=== PATIENT | female | born 1970 ===

== ENCOUNTER 2016-05-21 10:52 | Inpatient (IN) ==
--- NOTE | 2016-05-21 11:39 | Emergency Department Note ---
Yimi Oliveros Brittany, am scribing for, and in the presence of, Tonny Chowdary MD 11:21. Epi Oliveros Doug C, MD, personally performed the services described in this documentation, ascribed by Anushka Geller in my presence, and it is both accurate and complete 139 . Arrival - Arrival Chief Complaint: Upper Respiratory ED Nursing Triage Note: c/o cough and congestion. pt was dx with pneumonia. pt had low bp at [facility]. Mode of Arrival: Stretcher Limitations: No Limitations Source: Patient, Family, RN Notes Reviewed - History of Present Illness HPI Narrative: Patient is a 46-year-old [place] female with cough and chills this started sometime last night. She went to [facility] found to have a sizable right-sided pneumonia and she was hypotensive. Her blood pressure improved with IV fluids but they felt uncomfortable admitting her there with her hypotension and she was transferred here for further evaluation and admission. Patient states she does not have any chest pain she has had a persistent cough the last couple of days. She is not coughing up any sputum. Review of System - Review of System 12 point system: reviewed and no additional remarkable complaints except as stated - Review of System Constitutional: Present: chills, fever Eyes: Absent: vision change Head/Ears/Nose/Throat: Present: nasal drainage, sore throat Respiratory: Present: cough, respiratory distress Cardiovascular: Present: chest pain Gastrointestinal: Absent: abdominal pain, nausea, vomiting Genitourinary female: Absent: dysuria, frequency, urgency Musculoskeletal: Absent: arm pain, back pain, leg pain, neck pain Skin: Absent: rash Neurological: Absent: headache Psychiatric: Absent: anxiety, depression Endocrine: Absent: fatigue Hematological/Lymphatic: Absent: easy bleeding, easy bruising Medical,Surgical,& Family Hx - Medical History Cardio: History of: Hypertension Gastrointestinal: History of: GERD, GI Problems (cirrhosis) Hematology: History of: Anemia (iron deficiency) - Surgical History Surgical History: noncontributory - Family History Family History: noncontributory - Social History Smoking Status: Smoker, status unknown Frequency of Alcohol Use: None Type of Drug Use: None Exam Vital Signs: Vital Signs Temperature 98.6 F 05/21/16 10:58 Pulse Rate 97 H 05/21/16 10:58 Respiratory Rate 20 05/21/16 10:58 Blood Pressure 123/70 05/21/16 10:58 O2 Sat by Pulse Oximetry 97 05/21/16 10:58 - General General appearance: alert, in no apparent distress - Head Head exam: Present: atraumatic, normocephalic - Eye Eye exam: Present: PERRL, EOMI - ENT ENT exam: Present: normal oropharynx, mucous membranes moist - Neck Neck exam: Present: full ROM, trachea midline. Absent: tenderness - Chest Chest inspection: Present: symmetric chest wall rise. Absent: tenderness - Respiratory Respiratory exam: Present: rhonchi (scattered). Absent: normal lung sounds bilaterally - Cardiovascular Cardiovascular exam: Present: regular rate, normal rhythm, normal heart sounds. Absent: murmur, rubs, gallop - Abdominal Exam Abdominal exam: Present: soft, normal bowel sounds. Absent: distention, tenderness - Extremities Exam Extremities exam: Present: full ROM. Absent: tenderness - Back Exam Back exam: Present: full ROM. Absent: tenderness - Neurological Exam Neurological exam: Present: alert, oriented X3, CN II-XII intact. Absent: motor sensory deficit - Psychiatric Psychiatric exam: Present: normal affect, normal mood - Skin Skin exam: Present: warm, dry, intact, normal color Results - Labs Lab Results: I have reviewed the patients labs (Lab from [facility] reviewed) - Diagnostic Findings Procedure: Chest x-ray: report reviewed by me (Chest x-ray from [facility] revealed large right-sided pneumonia) Disposition Clinical Impression: Pneumonia Case discussed with: patient, patient's family Disposition: Still a Patient Condition: Guarded Time of Disposition: 11:39
[2016-05-21] MEDS ORDERED: SODIUM CHLORIDE 0.9% 1,000 ML IV ONE (12:21)
[2016-05-21] MEDS ORDERED: AZITHROMYCIN INJ 500 MG in SODIUM CHLORIDE 0.9% 250 ML IV STA (12:21)
--- NOTE | 2016-05-21 12:26 | Hospitalist History & Physical ---
Assessment and Plan (1) Septic shock Status: Acute Assessment and plan: NS bolus 2 liters at [facility], blood pressure better, will give another liter NS, blood cultures, repeat labs, Azithromycin and rocephin IV Current Visit: Yes (2) Pneumonia Status: Acute Assessment and plan: cont azithromycin and rocephin and duoneb, oxygen ICU monitoring Current Visit: Yes (3) LOUIS (obstructive sleep apnea) Status: Acute Assessment and plan: has severe sleep apnea due to obesity Current Visit: Yes (4) Arthritis Status: Acute Assessment and plan: on prednisone and sulfasalazine for ?arthritis, check cortisol level may need stress dose steroids Current Visit: Yes History of Present Illness Chief complaint: pneumonia History of present illness: Ms. Milton is a 46 year old female with a history of fatigue for the last 1-2 weeks. Patient started having cough and chills last night and became dizzy and lightheaded. She was seen at [facility] and was going to be admitted there. Her chest x-ray showed an extensive right lower and middle lobe pneumonia. Patient became hypotensive with a blood pressure down to 66 systolic. I was told she received 2 L normal saline there but only seen documentation of 1 L. It also has been documented that she is to receive Rocephin at [facility] prior to transferring. Because she only received 1 g I will give her another gram here. Patient is morbidly obese and at risk for airway compromise. I will place her in ICU overnight. Used to smoke but quit. No records were scanned in system or labs drawn in ER and home medications not entered. Home Medications Medication Instructions Recorded Confirmed Type Acetaminophen 500 mg PO BID PRN 05/21/16 05/21/16 History Ergocalciferol (Vitamin D2) 50,000 unit PO Q7D 05/21/16 05/21/16 History [Vitamin D2] Omeprazole [Prilosec] 20 mg PO DAILY 05/21/16 05/21/16 History predniSONE TAB [PredniSONE] 10 mg PO DAILY 05/21/16 05/21/16 History sulfaSALAzine [Sulfasalazine] 500 mg PO BID 05/21/16 05/21/16 History Allergies Allergy/AdvReac Type Severity Reaction Status Date / Time No Known Allergies Allergy Unverified 05/21/16 12:37 Medical,Surgical,& Family Hx - Medical History Cardio: History of: Hypertension Gastrointestinal: History of: GERD, GI Problems (cirrhosis) Hematology: History of: Anemia (iron deficiency) - Surgical History Reproductive Surgeries: Surgical HX of;: Hysterectomy Orthopedic Surgeries: Surgical HX of;: Orthopedic Surgery - Family History Family History: Reports;: Family Diabetes, Family Heart Disease - Social History Smoking Status: Former smoker Frequency of Alcohol Use: None Type of Drug Use: None Marital Status: Lives With:: Spouse Functional capacity: independent ambulation - Constitutional Constitutional: Present: fatigue, fever(s), headache(s), weakness - EENT Eyes: Present: blurry vision. Absent: diplopia Ears: Absent: decreased hearing, ear discharge Nose, mouth and throat: Present: headache(s). Absent: sore throat - Cardiovascular Cardiovascular: Present: dyspnea on exertion. Absent: chest pain at rest, chest pain with activity, dyspnea, edema - Respiratory Respiratory: Present: cough, dyspnea on exertion, snoring, change in phlegm color. Absent: dyspnea, wheezing - Gastrointestinal Gastrointestinal: Absent: constipation, diarrhea, nausea, vomiting - Genitourinary Genitourinary: Absent: difficulty urinating, dysuria - Neurological Neurological: Present: dizziness, headache(s) - Psychiatric Psychiatric: Absent: anxiety, depression - Endocrine Endocrine: Present: cold intolerance, fatigue - Hematologic/Lymphatic Hematologic/Lymphatic: Absent: easy bleeding, easy bruising Exam - Constitutional Vitals: Period Temp Pulse Resp BP Sys/Howe Pulse Ox Last 24 Hr 98.6 F-98.6 F 97-97 20-20 123-123/70-70 97 General appearance: mild distress, morbidly obese - Head Head exam: Present: normal inspection, normocephalic - Eye Eye exam: Present: EOMI. Absent: scleral icterus Pupils: Present: PEDRO, normal accommodation - ENT ENT exam: Present: normal exam, normal external ear exam - Neck Neck exam: Present: thyromegaly. Absent: lymphadenopathy - Respiratory Respiratory exam: Present: decreased breath sounds. Absent: rhonchi, wheezes - Cardiovascular Cardiovascular exam: Present: regular rate and rhythm. Absent: systolic murmur - GI/Abdominal GI/Abdominal exam: Present: normal bowel sounds, soft. Absent: tenderness - Extremities Exam Extremities exam: Present: normal inspection, normal capillary refill - Neurological Exam Neurological exam: Present: alert, oriented X3, CN II-XII intact, reflexes normal. Absent: motor sensory deficit - Psychiatric Psychiatric exam: Present: normal mood, flat affect - Skin Skin exam: Present: normal color, warm Results - Labs Labs: All labs from [facility]: WBC is 9.2, hemoglobin 12.3, platelets 184. Sodium is 140 2., potassium 3.4, calcium 8.8, BUN 17, creatinine 0.9, AST is 54, ALT is 38, urine is positive for blood but negative for leukocytes chest x-ray shows a right middle lobe and lower lobe infiltrate - Diagnostic Findings Procedure: Chest x-ray: image reviewed by me (right middle and lower lobe infiltrate )
[2016-05-21] MEDS ORDERED: cefTRIAXone 1,000 MG in SODIUM CHLORIDE 0.9% 100 ML IV STA (12:37)
[2016-05-21] MEDS ORDERED: cefTRIAXone 1,000 MG VIAL ONE (13:10)
[2016-05-21 13:11] LABS: Basophils % 0.1 % (0.0-0.8); Hematocrit 34.7 VOL% (35.7-47.0); Hemoglobin 11.3 GM/DL (12.0-16.0); Immature Granulocytes % 0.4 %; Immature Granulocytes Absolute 0.06 #; Lymphocytes # 0.6 10*3/uL (1.4-4.0); Lymphocytes % 3.9 % (21.3-54.2); Mean Corpuscular HGB Conc 32.6 GM/DL (32-36); Mean Corpuscular Hemoglobin 29 PG (27-34); Mean Corpuscular Volume 90.1 FL (87-102); Monocytes # 0.8 10*3/uL (0.11-0.8); Monocytes % 5.2 % (1.7-12.7); Neutrophils # 14.2 10*3/uL (1.4-7.4); Neutrophils % 90.4 % (38.7-73.9); Platelet Count 129 10*3/uL (130-400); Red Blood Count 3.85 10*6/uL (3.8-5.5); Red Cell Distribution Width 14.2 % (9.3-17.3); White Blood Count 15.7 10*3/uL (4.5-13.71)
[2016-05-21 13:30] LABS: Albumin 3.1 G/DL (3.4-5.0); Bilirubin,Total 0.8 MG/DL (0.2-1.0); Calcium 8.2 MG/DL (8.5-10.1); Osmolality,Calculated 293.4 MOS/KG (273-304); Potassium 3.5 MMOL/L (3.5-5.1); Total Protein 5.9 G/DL (6.4-8.3)
[2016-05-21 13:34] LABS: Band Neutrophils 4 % (0-10); Lymphocytes 7 % (20-55); Platelet Estimate Normal; Segmented Neutrophils 86 % (50-85); Total Cells Counted 100
[2016-05-21] MEDS ORDERED: ALBUTEROL 2.5 MG/3 ML NEB RESP TX PRN (15:01)
[2016-05-21] MEDS ORDERED: ONDANSETRON 4 MG/2 ML VIAL IV PRN (15:01)
[2016-05-21] MEDS ORDERED: ACETAMINOPHEN 325 MG TABLET PO PRN (15:01)
[2016-05-21] MEDS: ALBUTEROL/IPRATROPIUM 3 ML NEB RESP TX SCH ×2 (15:16→19:40)
[2016-05-21 15:27] LABS: Magnesium 1.6 MG/DL (1.8-2.4); Thyroid Stimulating Hormone 0.307 uIU/ml (0.358-3.74)
[2016-05-21] MEDS: predniSONE 10 MG TABLET PO SCH (15:52)
[2016-05-21] MEDS: ENOXAPARIN 40 MG/0.4 ML SYRINGE SUBCUT SCH (15:52)
[2016-05-21] MEDS: SODIUM CHLORIDE 0.9% 1,000 ML IV SCH (15:56)
[2016-05-21] MEDS: ACETAMINOPHEN 325 MG TABLET PO PRN (16:00)
[2016-05-21] MEDS ORDERED: AZITHROMYCIN INJ 500 MG in SODIUM CHLORIDE 0.9% 250 ML IV ONE (16:00)
[2016-05-22] MEDS: ALBUTEROL/IPRATROPIUM 3 ML NEB RESP TX SCH ×4 (00:08→19:24)
[2016-05-22 04:55] LABS: Basophils % 0.1 % (0.0-0.8); Eosinophils % 0.2 % (0.00-10.9); Hematocrit 30.2 VOL% (35.7-47.0); Hemoglobin 9.5 GM/DL (12.0-16.0); Immature Granulocytes % 0.7 %; Immature Granulocytes Absolute 0.09 #; Lymphocytes # 1.2 10*3/uL (1.4-4.0); Lymphocytes % 9.1 % (21.3-54.2); Mean Corpuscular HGB Conc 31.5 GM/DL (32-36); Mean Corpuscular Hemoglobin 29 PG (27-34); Mean Corpuscular Volume 91.5 FL (87-102); Monocytes # 0.6 10*3/uL (0.11-0.8); Monocytes % 4.6 % (1.7-12.7); Neutrophils # 11.3 10*3/uL (1.4-7.4); Neutrophils % 85.3 % (38.7-73.9); Platelet Count 139 10*3/uL (130-400); Red Cell Distribution Width 14.4 % (9.3-17.3); White Blood Count 13.3 10*3/uL (4.5-13.71)
[2016-05-22] MEDS: ACETAMINOPHEN 325 MG TABLET PO PRN (05:24)
[2016-05-22 05:28] LABS: Calcium 8.2 MG/DL (8.5-10.1); Osmolality,Calculated 293.1 MOS/KG (273-304); Potassium 3.6 MMOL/L (3.5-5.1)
[2016-05-22] MEDS: predniSONE 10 MG TABLET PO SCH (09:17)
[2016-05-22] MEDS: SODIUM CHLORIDE 0.9% 1,000 ML IV SCH ×2 (09:17)
[2016-05-22] MEDS: PANTOPRAZOLE 40 MG TABLET PO SCH (09:17)
[2016-05-22] MEDS ORDERED: AZITHROMYCIN INJ 500 MG in SODIUM CHLORIDE 0.9% 250 ML IV SCH (13:00)
[2016-05-22] MEDS ORDERED: cefTRIAXone 2,000 MG in SODIUM CHLORIDE 0.9% 100 ML IV SCH (13:00)
--- NOTE | 2016-05-22 13:35 | Hospitalist Progress Note ---
Assessment and Plan (1) Septic shock Status: Acute Assessment and plan: resolved, continue azithromycin and Rocephin Current Visit: Yes (2) Pneumonia Status: Acute Assessment and plan: cont azithromycin and rocephin and duoneb Current Visit: Yes (3) LOUIS (obstructive sleep apnea) Status: Acute Assessment and plan: has severe sleep apnea due to obesity Current Visit: Yes (4) Arthritis Status: Acute Assessment and plan: hold sulfasalazine Current Visit: Yes Hospitalist: Subjective Interval history: Patient is feeling better today but needs to keep on her oxygen. We are having Dr. Funes see her tomorrow when he gets back for obstructive sleep apnea. Exam - Constitutional Vitals: Period Temp Pulse Resp BP Sys/Howe Pulse Ox Last 24 Hr 98.1 F-100.5 F 60-101 12-32 99-168/53-89 92-99 Exam: HR-RRR lungs-rhonchi, some wheezes GI-+bs, soft and nt ext no edema neuro alert and oriented times 3, motor 5/5 psych normal mood and affect Results - Labs CBC & BMP: 05/22/16 03:51 05/22/16 03:51 Lab Results: I have reviewed the past 24 hour labs Labs: Blood cultures 2 were negative. Specialty Discharge - Follow Up or Referrals - Discharge Medications No Action sulfaSALAzine [Sulfasalazine] 500 mg PO BID predniSONE TAB [PredniSONE] 10 mg PO DAILY Omeprazole [Prilosec] 20 mg PO DAILY Acetaminophen 500 mg PO BID PRN PRN Reason: Pain Ergocalciferol (Vitamin D2) [Vitamin D2] 50,000 unit PO Q7D
[2016-05-22] MEDS: SODIUM CHLORIDE 0.45% 1,000 ML IV SCH (15:17)
[2016-05-22] MEDS: ENOXAPARIN 40 MG/0.4 ML SYRINGE SUBCUT SCH (15:17)
--- NOTE | 2016-05-22 15:17 | Sleep Medicine Consult ---
Assessment and Plan (1) Unspecified sleep apnea Status: Acute Assessment and plan: Her symptoms certainly are concerning for sleep apnea. Sleep evaluation is indicated. We will schedule her for outpatient polysomnography after she recovers from her bacterial pneumonia and sepsis. She is not stable pulmonary calvin for HST at present. Since she resides in [place], we will schedule her at the [facility] sleep disorder [facility] for convenience of follow-up and further evaluation for her. Current Visit: Yes (2) Hypertension Status: Acute Assessment and plan: The prevalence rate for obstructive sleep apnea patients with hypertension is 35 %. That rate can be as high as 80% in patients who require 4 or more medications for blood pressure control. Current Visit: Yes (3) Obesity, unspecified Status: Acute Assessment and plan: Patient encouraged to continue to work on weight loss thru appropriate dieting and exercise. The combination of weight loss and CPAP therapy for obstructive sleep apnea is better than either therapy alone for obstructive sleep apnea. Current Visit: Yes History of Present Illness Chief complaint: sleep apnea History of present illness: Ms. Milton is a 46 year old female admitted with bacterial pneumonia and septic shock. She is being treated with IV antibiotics and fluid resuscitation. She is improved significantly and was moved from the ICU to the floor. During her hospital course, it was noted that she had symptoms of sleep apnea. She snores loudly and has been told that she stops breathing during her sleep. She awakens up to 4 times a night to urinate and has profound sleepiness during the day, worse sleepiness score of over 12. She denies any history of restless legs but does have problems with arthritis that bothers her at night related to pain in her knees and ankles. She usually retires about 9 p.m. and will awaken at 5 the next morning. Home Medications Medication Instructions Recorded Confirmed Type Acetaminophen 500 mg PO BID PRN 05/21/16 05/21/16 History Ergocalciferol (Vitamin D2) 50,000 unit PO Q7D 05/21/16 05/21/16 History [Vitamin D2] Omeprazole [Prilosec] 20 mg PO DAILY 05/21/16 05/21/16 History predniSONE TAB [PredniSONE] 10 mg PO DAILY 05/21/16 05/21/16 History sulfaSALAzine [Sulfasalazine] 500 mg PO BID 05/21/16 05/21/16 History Allergies Allergy/AdvReac Type Severity Reaction Status Date / Time No Known Allergies Allergy Unverified 05/21/16 12:37 Review of systems: Otherwise unremarkable other than as stated in HPI, from a sleep standpoint. Exam (Pulmonay) H&P - Constitutional Vitals: Period Temp Pulse Resp BP Sys/Howe Pulse Ox Last 24 Hr 98.1 F-100.5 F 60-101 12-32 99-168/53-89 92-99 Exam: She is alert and responsive in no acute distress. Pupils equal round reactive to light and accommodation. Extraocular movements intact. Oropharynx with a class IV Mallampati exam. Neck is supple without adenopathy or thyromegaly. Chest was symmetrical breath sounds without significant wheezes rhonchi or rales at present. Cardiac exam reveals a regular rhythm without murmur or gallop. Abdomen obese nontender without palpable hepatosplenomegaly or mass. Extremities are without clubbing cyanosis or edema. Neurologically, she is grossly intact. She moves all extremities with good strength. Medical,Surgical,& Family Hx - Medical History Cardio: History of: Hypertension Rheumatology: History of;: Rheumatoid Arthritis Respiratory: History of: Pneumonia (current visit) Gastrointestinal: History of: GERD, GI Problems (cirrhosis) Hematology: History of: Anemia (iron deficiency) - Surgical History Cardiac Surgeries: Patient Denies: Cardiac Catheterization Thoracic Surgeries: Patient denies;: Organ Transplant, Lobectomy Neurologic Surgeries: Patient denies: Neurologic Surgery HEENT Surgeries: Patient denies: Tonsilectomy & Adenoidectomy Abdominal Surgeries: Patient denies: Abdominal Surgery Comment Only: Cholecystectomy (gall stones) Reproductive Surgeries: Surgical HX of;: Hysterectomy Patient denies;: Genitourinary Surgery Orthopedic Surgeries: Surgical HX of;: Orthopedic Surgery - Family History Family History: Reports;: Family Diabetes, Family Heart Disease - Social History Smoking Status: Former smoker Frequency of Alcohol Use: None Type of Drug Use: None Results - Labs CBC & BMP: 05/22/16 03:51 05/22/16 03:51 Lab Results: I have reviewed the past 24 hour labs Specialty Discharge - Follow Up or Referrals - Discharge Medications No Action sulfaSALAzine [Sulfasalazine] 500 mg PO BID predniSONE TAB [PredniSONE] 10 mg PO DAILY Omeprazole [Prilosec] 20 mg PO DAILY Acetaminophen 500 mg PO BID PRN PRN Reason: Pain Ergocalciferol (Vitamin D2) [Vitamin D2] 50,000 unit PO Q7D
[2016-05-22] MEDS: methylPREDNISolone SOD SUC 40 MG/1 ML VIAL IV SCH (15:21)
[2016-05-22] MEDS: cefTRIAXone 2,000 MG in SODIUM CHLORIDE 0.9% 100 ML IV SCH (15:40)
[2016-05-23] MEDS: ALBUTEROL/IPRATROPIUM 3 ML NEB RESP TX SCH ×4 (00:07→19:50)
[2016-05-23] MEDS: methylPREDNISolone SOD SUC 40 MG/1 ML VIAL IV SCH ×2 (02:32→14:11)
[2016-05-23] MEDS: ACETAMINOPHEN 325 MG TABLET PO PRN (05:39)
[2016-05-23] MEDS: SODIUM CHLORIDE 0.45% 1,000 ML IV SCH (05:41)
[2016-05-23 06:46] LABS: Basophils % 0.1 % (0.0-0.8); Hematocrit 33.8 VOL% (35.7-47.0); Hemoglobin 10.6 GM/DL (12.0-16.0); Immature Granulocytes % 0.7 %; Immature Granulocytes Absolute 0.08 #; Lymphocytes # 0.4 10*3/uL (1.4-4.0); Lymphocytes % 3.4 % (21.3-54.2); Mean Corpuscular HGB Conc 31.4 GM/DL (32-36); Mean Corpuscular Hemoglobin 29 PG (27-34); Mean Corpuscular Volume 91.6 FL (87-102); Mean Platelet Volume 12.2 FL (9.6-12.0); Monocytes # 0.3 10*3/uL (0.11-0.8); Monocytes % 2.8 % (1.7-12.7); Neutrophils # 11.1 10*3/uL (1.4-7.4); Platelet Count 144 10*3/uL (130-400); Red Blood Count 3.69 10*6/uL (3.8-5.5)
[2016-05-23 07:11] LABS: Band Neutrophils 1 % (0-10); Elliptocytes Few; Hypochromasia 1+; Lymphocytes 3 % (20-55); Platelet Estimate Normal; Segmented Neutrophils 93 % (50-85); Total Cells Counted 100
[2016-05-23 07:13] LABS: Osmolality,Calculated 291.4 MOS/KG (273-304); Potassium 4.2 MMOL/L (3.5-5.1)
[2016-05-23] MEDS: PANTOPRAZOLE 40 MG TABLET PO SCH (09:41)
--- NOTE | 2016-05-23 12:57 | Hospitalist Progress Note ---
Assessment and Plan (1) Pneumonia Status: Acute Assessment and plan: cont azithromycin and rocephin and duoneb repeat chest x-ray in am Current Visit: Yes (2) LOUIS (obstructive sleep apnea) Status: Acute Assessment and plan: has severe sleep apnea due to obesity, outpatient sleep study Current Visit: Yes (3) Arthritis Status: Acute Assessment and plan: hold sulfasalazine Current Visit: Yes (4) Hypertension Status: Acute Assessment and plan: norvasc 5 Current Visit: Yes Hospitalist: Subjective Interval history: Patient says she feels much better today really like to go home. I am not comfortable with that today I think she needs 1 more day of IV antibiotics. She is not wearing her oxygen source sats drop a little bit without it. Dr. Funes has seen her today and recommends an outpatient sleep study. Thank you for seeing her. Will repeat her chest x-ray tomorrow. Her blood pressure is elevated today and I am going to start her on a little bit of blood pressure medicine and Hep-Lock her fluids. Exam - Constitutional Vitals: Period Temp Pulse Resp BP Sys/Howe Pulse Ox Last 24 Hr 97.4 F-98.7 F 60-95 16-20 127-157/69-90 92-100 Exam: HR-RRR lungs-wheezing and rhonchi have improved significantly GI-+bs, soft and nt ext no edema neuro alert and oriented times 3, motor 5/5 psych normal mood and affect Results - Labs CBC & BMP: 05/23/16 05:16 05/23/16 05:16 Lab Results: I have reviewed the past 24 hour labs Specialty Discharge - Follow Up or Referrals - Discharge Medications No Action sulfaSALAzine [Sulfasalazine] 500 mg PO BID predniSONE TAB [PredniSONE] 10 mg PO DAILY Omeprazole [Prilosec] 20 mg PO DAILY Acetaminophen 500 mg PO BID PRN PRN Reason: Pain Ergocalciferol (Vitamin D2) [Vitamin D2] 50,000 unit PO Q7D
[2016-05-23] MEDS: amLODIPine 5 MG TABLET PO SCH (14:11)
[2016-05-23] MEDS: cefTRIAXone 2,000 MG in SODIUM CHLORIDE 0.9% 100 ML IV SCH (14:11)
[2016-05-23] MEDS: ENOXAPARIN 40 MG/0.4 ML SYRINGE SUBCUT SCH (16:13)
[2016-05-24] MEDS: ALBUTEROL/IPRATROPIUM 3 ML NEB RESP TX SCH ×3 (00:35→13:35)
[2016-05-24] MEDS: methylPREDNISolone SOD SUC 40 MG/1 ML VIAL IV SCH ×2 (02:56→14:33)
[2016-05-24 06:05] LABS: Basophils % 0.1 % (0.0-0.8); Hematocrit 31.6 VOL% (35.7-47.0); Immature Granulocytes % 1.1 %; Immature Granulocytes Absolute 0.12 #; Lymphocytes # 0.7 10*3/uL (1.4-4.0); Lymphocytes % 6.4 % (21.3-54.2); Mean Corpuscular HGB Conc 31.6 GM/DL (32-36); Mean Corpuscular Hemoglobin 29 PG (27-34); Mean Corpuscular Volume 90.3 FL (87-102); Mean Platelet Volume 12.3 FL (9.6-12.0); Monocytes # 0.6 10*3/uL (0.11-0.8); Monocytes % 5.2 % (1.7-12.7); Neutrophils # 9.6 10*3/uL (1.4-7.4); Neutrophils % 87.2 % (38.7-73.9); Platelet Count 174 10*3/uL (130-400)
[2016-05-24 06:32] LABS: Calcium 8.8 MG/DL (8.5-10.1); Osmolality,Calculated 292.4 MOS/KG (273-304); Potassium 4.1 MMOL/L (3.5-5.1)
--- NOTE | 2016-05-24 08:15 | Discharge Summary ---
<Karoline Carpenter - Last Filed: 05/24/16 08:10> Hospital Course - Hospital Course Hospital Course: Ms. Milton was admitted on 05/21/16 with pneumonia, and septic shock. She was started on fluids, rocephin and azithromycin. Dr. Lisa Funes saw in sleep medicine consultation and he felt that a lot of her symptoms are caused from sleep apnea. He felt that once she recovered from her sepsis and pneumonia, that he will be able to work up her LOUIS as an outpatient. She is on Norvasc 5 mg Po daily for her HTN. She has improved and her vital signs and labs are stable. She will be discharged home today on appropriate medications and follow up. - Time spent with patient Time with patient DS: Greater than 30 minutes (due to plan, doc and med rec.) Diagnosis - Discharge Diagnosis (1) Pneumonia Status: Acute (2) Arthritis Status: Acute (3) Hypertension Status: Acute (4) LOUIS (obstructive sleep apnea) Status: Acute (5) Obesity, unspecified Status: Acute Specialty Discharge - Follow Up or Referrals - Discharge Medications No Action sulfaSALAzine [Sulfasalazine] 500 mg PO BID predniSONE TAB [PredniSONE] 10 mg PO DAILY Omeprazole [Prilosec] 20 mg PO DAILY Acetaminophen 500 mg PO BID PRN PRN Reason: Pain Ergocalciferol (Vitamin D2) [Vitamin D2] 50,000 unit PO Q7D Discharge Plan - Discharge Data Disposition: Disch To Home/Self Care - Discharge Medications New amLODIPine [Norvasc] 10 mg PO DAILY #60 tablet Albuterol Inhaler [Proventil Inhaler] 2 puff INH Q4H PRN #1 inhaler PRN Reason: Shortness Of Breath/Wheezing Azithromycin 500 mg PO DAILY #10 tablet Continue Omeprazole [Prilosec] 20 mg PO DAILY Acetaminophen 500 mg PO BID PRN PRN Reason: Pain predniSONE TAB [PredniSONE] 10 mg PO DAILY #30 tablet sulfaSALAzine [Sulfasalazine] 500 mg PO BID #0 Ergocalciferol (Vitamin D2) [Vitamin D2] 50,000 unit PO Q7D - Follow Up or Referral Follow Up: [facility] [Provider Group] - 1 Week (cxr) - Forms/Instructions Exam - Constitutional Vitals: Period Temp Pulse Resp BP Sys/Howe Pulse Ox Last 24 Hr 98.0 F-98.7 F 58-90 15-24 154-159/79-90 91-99 Discharge Results Procedures and tests throughout hospitalization: Pending Orders 05/21/16 13:08 Blood Culture Stat 05/25/16 04:00 Basic Metabolic Panel IN AM Labs on day of discharge: Labs from last 24 hours 05/24/16 05/24/16 04:37 04:37 WBC 11.0 RBC 3.50 L Hgb 10.0 L Hct 31.6 L MCV 90.3 MCH 29 MCHC 31.6 L RDW 14.0 Plt Count 174 D MPV 12.3 H Neut % (Auto) 87.2 H Lymph % (Auto) 6.4 L [place] % (Auto) 5.2 Eos % (Auto) 0.0 Baso % (Auto) 0.1 Neut # (Auto) 9.6 H Lymph # (Auto) 0.7 L [place] # (Auto) 0.6 Eos # (Auto) 0.0 Baso # (Auto) 0.0 Immature Gran % 1.1 Nucleated RBC % 0.0 Immature Gran # 0.12 Nucleated RBCs # 0.00 Sodium 147 H Potassium 4.1 Chloride 108 H Carbon Dioxide 30 Anion Gap 13.1 BUN 10 Creatinine 0.60 GFR Calculation 141 BUN/Creatinine Ratio 16.00 Glucose 130 H Calculated Osmolality 292.4 Calcium 8.8 Preliminary micro results at discharge 05/21/16 13:08 Blood Culture - Preliminary Blood No growth at 1 day 05/21/16 12:54 Blood Culture - Preliminary Blood No growth at 1 day DS: Provider Date of admission: 05/21/16 12:01 Primary care physician: Maria Fernanda Olson MD Attending physician on admission: Chela Husain MD Consults: 05/21/16 15:04 Consult to Pharmacy [CONS] Routine Reason for Pharmacy Consult: Adjust Meds Renal Funct 05/21/16 15:26 Consult to Pastoral Services [CONS] Routine Comment: Pastoral Screen: Request Engineering Leader Visit Pastoral Screen Source of Request: Patient 05/21/16 15:42 Consult to Physician [CONS] Routine Comment: severe louis Consulting Provider: Lisa Funes When should Consulting Provider be notified: In am Consult Notification Comment: Dr. Husain is aware Discharging clinician: Karoline Carpenter NP Expected date of discharge: 05/24/16 <Chela Husain - Last Filed: 05/24/16 11:50> Hospital Course - Hospital Course Hospital Course: Patient seen and examined. Hospital course reviewed and edited. Chest x-ray unchanged but patient feels much better. She will be discharged home today. Patient has morbid obesity and severe sleep apnea and she is scheduled for an outpatient sleep study on June 06, 2015. Encouraged her to be compliant. Her blood pressure is elevated I am starting her on Norvasc. She will need to follow-up with [facility] in 1 week. Diagnosis - Discharge Diagnosis (1) Pneumonia Status: Acute (2) LOUIS (obstructive sleep apnea) Status: Acute (3) Arthritis Status: Acute (4) Hypertension Status: Acute Discharge Plan - Discharge Data Condition at Discharge: Stable Discharge Diet: heart healthy Activity: resume usual activities as tolerated - Forms/Instructions Additional Discharge Instructions: Outpatient sleep study scheduled for June 06, 2015 Exam - Constitutional Exam: Heart Rate-[RRR] Lungs-[CTAB] Abd-[+bs soft, NT] Ext-[no edema]
--- NOTE | 2016-05-24 08:40 | XRay Report ---
XR chest 2V Indication: Pneumonia Comparison: 21 May 2016 Findings: The heart and mediastinum are normal in size and configuration. The pulmonary vascularity is normal in caliber. Patchy a right lower lung density is present similar previous exam. No other lung infiltrates, effusions, pneumothorax or other abnormality is demonstrated. Impression: No significant change. PROCEDURE INTERPRETED AT [facility] DEPARTMENT OF RADIOLOGY Final Report Signed by: Dr. Prosper Buchanan
[2016-05-24] MEDS ORDERED: INFLUENZA VIRUS VACCINE 0.5 ML SYRINGE IM ONE (09:00)
[2016-05-24] MEDS: amLODIPine 5 MG TABLET PO SCH (10:10)
[2016-05-24] MEDS: PANTOPRAZOLE 40 MG TABLET PO SCH (10:10)
[2016-05-24 11:34] VITALS: BP 158/84
[2016-05-24] MEDS ORDERED: AZITHROMYCIN INJ 500 MG in SODIUM CHLORIDE 0.9% 250 ML IV ONE (12:30)
[2016-05-24] MEDS: cefTRIAXone 2,000 MG in SODIUM CHLORIDE 0.9% 100 ML IV SCH (14:32)
[2016-05-24] MEDS: ENOXAPARIN 40 MG/0.4 ML SYRINGE SUBCUT SCH (15:34)
== END 2016-05-24 15:26 | disposition home or self-care (01) | DRG 194 ==
LOC: EDBD → EDUNIT# → N.ED 10:52 → N.EDINP 12:01 → N.ICU 13:47 → N.5E 05-22 06:13
PROVIDERS: ADMIT Internal Medicine; ATTEND Internal Medicine